=== PATIENT | male | born 1990 | race American Indian/Alaskan Native ===

== ENCOUNTER 2017-08-29 20:06 | Emergency (ER) | payer OTHER ==
[2017-08-29] MEDS ORDERED: TYLENOL #3 PO ONE (23:23)
--- NOTE | 2017-08-29 23:27 | Emergency Department Report ---
ED ENT HPI - General Chief complaint: Dental/Oral Stated complaint: R. UPPER TOOTH PAIN Time Seen by Provider: 08/29/17 23:22 Source: patient Mode of arrival: Ambulatory Limitations: No Limitations - History of Present Illness Initial comments: 26-year-old male past medical history presents with complaint of right upper dental pain for over one year. Patient denies pus or blood drainage from mouth awake alert and oriented 3 not in acute distress. States that he has 7 out of 10 right upper toothache. No trismus and no drooling no tripoding. Denies fevers or chills. Speaking in full sentences. MD complaint: tooth pain Onset/Timin -: year(s) Location: tooth # (1) Severity: moderate Severity scale (0 -10): 6 Quality: aching Worsens with: eating Context- Dental: history of dental caries, poor dental care Associated Symptoms: toothache - Related Data Previous Rx's Medication Instructions Recorded Last Taken Type Acetaminophen/Codeine [Tylenol 1 tab PO Q6H PRN #12 tab 08/29/17 Unknown Rx /Codeine # 3 tab] Amoxicillin [Trimox CAP] 500 mg PO Q8H #30 capsule 08/29/17 Unknown Rx Benzocaine [Orajel Liquid 20%] 1 ml MM Q6HR PRN #1 bottle 08/29/17 Unknown Rx Chlorhexidine Mouthwash [Peridex] 15 ml MM BID #1 bottle 08/29/17 Unknown Rx Ibuprofen [Motrin] 800 mg PO Q8HR PRN #30 tablet 08/29/17 Unknown Rx Allergies Allergy/AdvReac Type Severity Reaction Status Date / Time No Known Allergies Allergy Unverified 08/29/17 21:43 ED Dental HPI - General Chief complaint: Dental/Oral Stated complaint: R. UPPER TOOTH PAIN Time Seen by Provider: 08/29/17 23:22 Source: patient Mode of arrival: Ambulatory Limitations: No Limitations - Related Data Previous Rx's Medication Instructions Recorded Last Taken Type Acetaminophen/Codeine [Tylenol 1 tab PO Q6H PRN #12 tab 08/29/17 Unknown Rx /Codeine # 3 tab] Amoxicillin [Trimox CAP] 500 mg PO Q8H #30 capsule 08/29/17 Unknown Rx Benzocaine [Orajel Liquid 20%] 1 ml MM Q6HR PRN #1 bottle 08/29/17 Unknown Rx Chlorhexidine Mouthwash [Peridex] 15 ml MM BID #1 bottle 08/29/17 Unknown Rx Ibuprofen [Motrin] 800 mg PO Q8HR PRN #30 tablet 08/29/17 Unknown Rx Allergies Allergy/AdvReac Type Severity Reaction Status Date / Time No Known Allergies Allergy Unverified 08/29/17 21:43 ED Review of Systems ROS: Stated complaint: R. UPPER TOOTH PAIN Other details as noted in HPI Constitutional: denies: chills, fever Eyes: denies: eye pain, eye discharge, vision change ENT: dental pain (right upper dental pain for 1 year). denies: ear pain, throat pain Respiratory: denies: cough, shortness of breath, wheezing Cardiovascular: denies: chest pain, palpitations Endocrine: no symptoms reported Gastrointestinal: denies: abdominal pain, nausea, diarrhea Genitourinary: denies: urgency, dysuria Musculoskeletal: denies: back pain, joint swelling, arthralgia Skin: denies: rash, lesions Neurological: denies: headache, weakness, paresthesias Psychiatric: denies: anxiety, depression Hematological/Lymphatic: denies: easy bleeding, easy bruising ED Past Medical Hx - Past Medical History Previous Medical History?: No - Surgical History Past Surgical History?: No - Social History Smoking Status: Never Smoker Substance Use Type: Alcohol - Medications Home Medications: Home Medications Medication Instructions Recorded Confirmed Last Taken Type Acetaminophen/Codeine [Tylenol 1 tab PO Q6H PRN #12 tab 08/29/17 Unknown Rx /Codeine # 3 tab] Amoxicillin [Trimox CAP] 500 mg PO Q8H #30 capsule 08/29/17 Unknown Rx Benzocaine [Orajel Liquid 20%] 1 ml MM Q6HR PRN #1 bottle 08/29/17 Unknown Rx Chlorhexidine Mouthwash [Peridex] 15 ml MM BID #1 bottle 08/29/17 Unknown Rx Ibuprofen [Motrin] 800 mg PO Q8HR PRN #30 tablet 08/29/17 Unknown Rx ED Physical Exam - General Limitations: No Limitations General appearance: alert, in no apparent distress - Head Head exam: Present: atraumatic, normocephalic - Eye Eye exam: Present: normal appearance, PERRL, EOMI - ENT ENT exam: Present: mucous membranes moist - Expanded ENT Exam Expanded Teeth exam: Present: dental caries, dental tenderness # (1), gingival enlargement (1) 1 - Dental Tenderness (large dental cavity at tooth #1, no associated abscess) - Neck Neck exam: Present: normal inspection - Respiratory Respiratory exam: Present: normal lung sounds bilaterally. Absent: respiratory distress - Cardiovascular Cardiovascular Exam: Present: regular rate, normal rhythm. Absent: systolic murmur, diastolic murmur, rubs, gallop - GI/Abdominal GI/Abdominal exam: Present: soft, normal bowel sounds - Rectal Rectal exam: Present: deferred - Extremities Exam Extremities exam: Present: normal inspection - Back Exam Back exam: Present: normal inspection - Neurological Exam Neurological exam: Present: alert, oriented X3 - Psychiatric Psychiatric exam: Present: normal affect, normal mood - Skin Skin exam: Present: warm, dry, intact, normal color. Absent: rash ED Course Vital Signs 08/29/17 21:40 Temperature 98.5 F Pulse Rate 74 Respiratory 18 Rate Blood Pressure 126/72 O2 Sat by Pulse 100 Oximetry ED Medical Decision Making - Medical Decision Making A/P: dental cavities, toothache, dental abscess 1- Motrin when necessary, amoxicillin ten-day course, Orajel when necessary, Peridex mouthwash daily basis, short course codeine when necessary 2- I provided patient with information for multiple dental clinics to follow up and stressed the importance of dental follow-up as he has multiple cavities that require dental fixation or instrumentation 3- no clinical signs of facial abscess, no Yovany's angina, no induration or cellulitis of floor of mouth or tongue 4- patient able to tolerate by mouth before discharge 5- no signs of facial infection. Advised patient that if he does not take antibiotics with follow-up with a dentist as soon as possible that a can result in potentially serious or dangerous infection to develop in jaw or face. Patient states that he understood these instructions. I advised patient to return to the ED for any persistent unrelenting nausea or vomiting fever or chills or headaches. Critical care attestation.: If time is entered above; I have spent that time in minutes in the direct care of this critically ill patient, excluding procedure time. ED Disposition Clinical Impression: Dental cavity Disposition: [id number] TO HOME OR SELFCARE Is pt being admited?: No Does the pt Need Aspirin: No Condition: Stable Instructions: Dental Caries (ED), Toothache (ED) Prescriptions: Acetaminophen/Codeine [Tylenol /Codeine # 3 tab] 1 tab PO Q6H PRN #12 tab PRN Reason: Toothache Amoxicillin [Trimox CAP] 500 mg PO Q8H #30 capsule Benzocaine [Orajel Liquid 20%] 1 ml MM Q6HR PRN #1 bottle PRN Reason: Toothache Chlorhexidine Mouthwash [Peridex] 15 ml MM BID #1 bottle Ibuprofen [Motrin] 800 mg PO Q8HR PRN #30 tablet PRN Reason: Toothache Referrals: [facility] [Outside] - 3-5 Days Forms: Accompanied Note, Work/School Release Form(ED) Time of Disposition: 23:23
[2017-08-29 23:44] VITALS: BP 128/72
== END 2017-08-29 23:44 | disposition home or self-care (01) ==
LOC: ED 20:06
DX: K02.9 Dental caries, unspecified (principal)
CPT/HCPCS: 99282